=== PATIENT | male | born 1995 ===

== ENCOUNTER → 2020-05-27 10:23 | Outpatient (BNVA) | payer MEDICARE, MEDICAID, SELFPAY | PROVIDERS: PCP Internal Medicine; Referring Provider Internal Medicine; Visit Provider Dietitian, Registered | DX: Z76.89 Persons encountering health services in other specified circumstances (principal) ==

== ENCOUNTER → 2020-08-27 11:16 | Outpatient (BNVA) | payer MEDICARE, MEDICAID, SELFPAY | PROVIDERS: PCP Internal Medicine; Visit Provider Dietitian, Registered ==

== ENCOUNTER → 2020-10-21 09:33 | Outpatient (BNVA) | payer MEDICARE, MEDICAID, SELFPAY | PROVIDERS: PCP Internal Medicine; Visit Provider Nurse Practitioner Gerontology | CPT/HCPCS: 99212 ==

== ENCOUNTER 2020-10-27 07:20 | Outpatient (REF) | payer MEDICARE, MEDICAID, SELFPAY ==
[2020-10-27 08:56] LABS: Alanine Aminotransferase 24 U/L (0-40); Albumin Level 4.6 g/dL (3.5-5.0); Alkaline Phosphatase 102 U/L (39-117); Anion Gap 14 (12-20); Aspartate Amino Transferase 24 U/L (5-37); Bilirubin Total 1.2 mg/dL (0.0-1.0); Blood Urea Nitrogen 13 mg/dL (9-16); Calcium 9.3 mg/dL (8.4-10.2); Carbon Dioxide 28 mmol/L (22-29); Chloride 102 mmol/L (96-108); Cholesterol 115 mg/dL; Estimated Glomerular Filt Rate > 60; Glucose Fasting 88 mg/dL (60-99); HDL Cholesterol 26 mg/dL; LDL Cholesterol Calculated 36 mg/dl; Potassium 4.2 mmol/L (3.3-5.1); Sodium 140 mmol/L (135-145); Total Protein 7.2 g/dL (6.5-8.0); Triglycerides 265 mg/dL
[2020-10-27 09:19] LABS: Estimated Average Glucose 94 mg/dL; Hemoglobin A1c % 4.9 %
[2020-10-30 21:48] LABS: Gabapentin 4.4 mcg/mL
[2020-10-31 17:32] LABS: Oxcarbazepine 2.4 mcg/mL (8.0-35.0)
== END 2020-10-27 07:21 | disposition home or self-care (01) ==
LOC: HO.LAB 07:20
PROVIDERS: Nurse Practitioner Family; Absent Provider Nurse Practitioner Gerontology; PCP Internal Medicine; Visit Provider Internal Medicine
DX: E11.9 Type 2 diabetes mellitus without complications (principal)
CPT/HCPCS: 36415; 80053; 80061; 80171; 80339; 83036

== ENCOUNTER → 2020-12-24 10:21 | Outpatient (BNVA) | payer MEDICARE, MEDICAID, SELFPAY | PROVIDERS: PCP Internal Medicine; Visit Provider Dietitian, Registered | DX: E11.9 Type 2 diabetes mellitus without complications (principal); E66.9 Obesity, unspecified; Z68.41 Body mass index [BMI] 40.0-44.9, adult; Z71.3 Dietary counseling and surveillance | CPT/HCPCS: 97803 ==

== ENCOUNTER → 2021-03-21 11:07 | Outpatient (BNVA) | payer MEDICARE, MEDICAID, SELFPAY | PROVIDERS: PCP Internal Medicine; Visit Provider Dietitian, Registered | DX: E11.9 Type 2 diabetes mellitus without complications (principal); E66.01 Morbid (severe) obesity due to excess calories; Z68.41 Body mass index [BMI] 40.0-44.9, adult; Z71.3 Dietary counseling and surveillance | CPT/HCPCS: 97803 ==

== ENCOUNTER 2021-04-05 07:23 | Outpatient (REF) | payer MEDICARE, MEDICAID, SELFPAY ==
[2021-04-05 09:32] LABS: Alanine Aminotransferase 24 U/L (0-40); Albumin Level 4.5 g/dL (3.5-5.0); Alkaline Phosphatase 97 U/L (39-117); Anion Gap 14 (12-20); Aspartate Amino Transferase 36 U/L (5-37); Bilirubin Total 1.5 mg/dL (0.0-1.0); Blood Urea Nitrogen 14 mg/dL (9-16); Calcium 9.4 mg/dL (8.4-10.2); Carbon Dioxide 26 mmol/L (22-29); Chloride 107 mmol/L (96-108); Cholesterol 124 mg/dL; Estimated Glomerular Filt Rate > 60; Glucose Fasting 92 mg/dL (60-99); HDL Cholesterol 28 mg/dL; LDL Cholesterol Calculated 62 mg/dl; Potassium 4.3 mmol/L (3.3-5.1); Sodium 143 mmol/L (135-145); Total Protein 7.2 g/dL (6.5-8.0); Triglycerides 172 mg/dL
[2021-04-05 10:18] LABS: Estimated Average Glucose 97 mg/dL
[2021-04-08 19:17] LABS: Gabapentin 4.2 mcg/mL
[2021-04-11 20:06] LABS: Oxcarbazepine 3.4 mcg/mL (8.0-35.0)
== END 2021-04-05 07:24 | disposition home or self-care (01) ==
LOC: HO.LAB 07:23
PROVIDERS: Absent Provider Nurse Practitioner Family; PCP Internal Medicine; Visit Provider Internal Medicine
DX: R56.9 Unspecified convulsions (principal); E11.40 Type 2 diabetes mellitus with diabetic neuropathy, unspecified; E78.5 Hyperlipidemia, unspecified
CPT/HCPCS: 36415; 80053; 80061; 80171; 80339; 83036

== ENCOUNTER → 2021-04-25 09:34 | Outpatient (BNVA) | payer MEDICARE, MEDICAID, SELFPAY | PROVIDERS: PCP Internal Medicine; Visit Provider Nurse Practitioner Gerontology | CPT/HCPCS: 99212 ==

== ENCOUNTER → 2021-09-21 09:54 | Outpatient (BNVA) | payer MEDICARE, MEDICAID, SELFPAY | PROVIDERS: PCP Internal Medicine; Visit Provider Dietitian, Registered | DX: E66.01 Morbid (severe) obesity due to excess calories (principal); E11.9 Type 2 diabetes mellitus without complications; Z68.41 Body mass index [BMI] 40.0-44.9, adult | CPT/HCPCS: 97803 ==

== ENCOUNTER 2021-10-13 12:20 | Emergency (ER) | payer MEDICARE, MEDICAID, SELFPAY ==
--- NOTE | ~2021-10-13 | CT_ITS ---
EXAMINATION: CT HEAD WITHOUT CONTRAST CLINICAL INFORMATION: Head injury 10/11/2021. Seizures today. COMPARISON: CT head 04/26/2014 TECHNIQUE: Contiguous axial imaging was performed from the skull base to vertex without intravenous administration of contrast. Coronal and sagittal reformatted images are performed at the CT scanner. [This CT examination was performed using dose optimization techniques as appropriate, variously including the following: *Automated exposure control *Adjustment of mA and/or kV according to patient size (this includes techniques or standardized protocols for targeted exams where dose is matched to indication/reason for exam; i.e. extremities or head) *Use of iterative reconstruction technique] DLP: 1919 mGy-cm. FINDINGS: There is no evidence of acute intracranial hemorrhage or territorial infarction. No abnormal mass-effect or midline shift is seen. David to white matter differentiation is well preserved. No extra-axial fluid collections are identified. The ventricles are normal in size. There is no abnormal attenuation within the brain parenchyma. There is no osseous abnormality. The mastoid air cells and visualized portions of the paranasal sinuses are well-aerated. CT/CT head/brain wo con IMPRESSION: No acute intracranial pathology.
[2021-10-13 13:16] VITALS: BP 139/83; PULSE 100; RESP 18; TEMP 36.6; O2SAT 95; BMI 28.3
[2021-10-13 14:10] LABS: MANUAL DIFF FLAG NO
[2021-10-13 14:13] LABS: Basophils Percent Auto 0.2 % (0-2); Eosinophils Absolute Auto 0.1 X10*3/uL (0.0-0.4); Eosinophils Percent Auto 1.8 % (0-4); Hematocrit 46.2 % (42.0-52.0); Hemoglobin 15.2 g/dl (14.0-18.0); Imm Gran Abs Auto 0.03 X10*3/uL (0.00-0.03); Imm Gran Pct Auto 0.6 % (0.0-0.4); Lymphocytes Absolute Auto 1.1 X10*3/uL (1.2-4.9); Lymphocytes Percent Auto 21.2 % (20-40); Mean Corpuscular HGB Conc 32.9 g/dl (31.0-36.0); Mean Corpuscular Hemoglobin 27.3 pg (27.0-33.0); Mean Corpuscular Volume 83.1 fL (80.0-98.0); Mean Platelet Volume 12.1 fL (9.4-12.4); Monocytes Absolute Auto 0.4 X10*3/uL (0.1-1.2); Monocytes Percent Auto 8.7 % (2-11); Neutrophils Absolute Auto 3.4 x10*3/uL (2.0-8.3); Neutrophils Percent Auto 67.5 % (45-73); Platelet Count 127 X10*3/uL (160-400); Red Blood Count 5.56 X10*6/uL (4.60-5.80); Red Cell Distribution Width 13.8 % (11.0-16.0)
[2021-10-13 14:32] LABS: Anion Gap 11 (12-20); Blood Urea Nitrogen 17 mg/dL (9-16); Calcium 9.6 mg/dL (8.4-10.2); Carbon Dioxide 27 mmol/L (22-29); Chloride 108 mmol/L (96-108); Creatinine Clr Calc Pharmacy 133.5; Estimated Glomerular Filt Rate > 60; Glucose Random 90 mg/dL (60-115); Potassium 4.1 mmol/L (3.3-5.1); Sodium 142 mmol/L (135-145)
[2021-10-13 15:15] VITALS: BP 126/78; PULSE 82; RESP 17; TEMP 37.1; O2SAT 97
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
[2021-10-13 17:46] LABS: Magnesium 1.9 mg/dL (1.6-2.6)
[2021-10-13] MEDS: OXcarbazepine 300 MG TABLET PO (17:55)
== END 2021-10-13 18:05 | disposition home or self-care (01) ==
PROVIDERS: Physician Assistant; Emergency Provider Emergency Medicine; PCP Internal Medicine
DX: R56.9 Unspecified convulsions (principal); S00.12XA Contusion of left eyelid and periocular area, initial encounter; Y04.2XXA Assault by strike against or bumped into by another person, initial encounter; E11.9 Type 2 diabetes mellitus without complications; E78.5 Hyperlipidemia, unspecified; Q89.9 Congenital malformation, unspecified; Z79.899 Other long term (current) drug therapy; Y93.89 Activity, other specified; Y92.049 Unspecified place in boarding-house as the place of occurrence of the external cause; Y99.9 Unspecified external cause status
CPT/HCPCS: 36415; 70450; 80048; 83735; 85025; 99284

== ENCOUNTER 2022-09-09 22:39 | Emergency (ER) | payer MEDICARE, MEDICAID, SELFPAY ==
[2022-09-09 22:54] VITALS: BP 136/88; PULSE 93; RESP 18; TEMP 36.6; O2SAT 97; BMI 35.2
--- NOTE | 2022-09-10 01:48 | ED_ITS ---
HPI - General Adult General Chief complaint: Extremity Injury, Lower Stated complaint: Toe pain Time Seen by Provider: 09/10/22 01:18 Source: other ( Caregiver) Mode of arrival: ambulatory Limitations: other ( severe autism) History of Present Illness HPI narrative: 26-year-old male with history of autism presents after accidentally kicking his foot on something. He subsequently had a toenail injury. This created Behavioral situation. However, he is brought here for evaluation. Caregivers noted a toenail injury. No additional injuries. Behavior has been relatively well controlled. There are no clear exacerbating features. Tetanus vaccination status is unknown. Related Data Home Medications Medication Instructions Recorded Confirmed aripiprazole 5 mg tablet 5 mg PO DAILY 06/14/22 06/14/22 quetiapine 100 mg tablet See Rx Instructions PO BEDTIME 06/14/22 06/14/22 quetiapine 200 mg tablet 200 mg PO .Am 06/14/22 06/14/22 quetiapine 50 mg tablet 0 mg PO 06/14/22 06/14/22 Previous Rx's Medication Instructions Recorded gabapentin 300 mg capsule 900 mg PO TID #270 caps 07/07/20 lancets 30 gauge (TRUEplus Lancets) 30 gauge miscellaneous TID for 02/12/21 diabetes mellitus 30 days #100 caps omega-3 fatty acids 1,000 mg 4,000 mg PO DAILY 30 days #120 caps 08/06/21 capsule bacitracin zinc 500 unit/gram 1 appl topical DAILY 90 days #28 09/22/21 topical ointment (Antibiotic grams (bacitracin zinc)) blood sugar diagnostic (Contour #50 ea 01/10/22 Next Test Strips) omeprazole 40 mg capsule,delayed 40 mg PO DAILY #30 caps 01/27/22 release acetaminophen 500 mg tablet 1,000 mg PO Q6H PRN for fever 30 04/16/22 days #120 tabs magnesium hydroxide 2,400 mg/10 mL 10 ml PO BEDTIME PRN constipation 04/16/22 oral suspension (Milk Of Magnesia 90 days #1,000 mL Concentrated) simvastatin 40 mg tablet 40 mg PO DAILY 90 days #90 tabs 04/16/22 trazodone 100 mg tablet 100 mg PO BEDTIME PRN insomnia 90 04/16/22 days #90 tabs loratadine 10 mg tablet 10 mg PO DAILY #30 tabs 05/11/22 carbamide peroxide 6.5 % ear drops 5 drp otic (ears) DAILY PRN ear 06/14/22 (Debrox) wax removal 4 days #15 mL lorazepam 1 mg tablet 1 mg PO DAILY PRN agitation 1 day 06/14/22 #1 tab vitamin E (dl, acetate) 180 mg 180 mg PO DAILY #30 caps 07/20/22 (400 unit) capsule oxcarbazepine 300 mg tablet 300 mg PO BID 90 days #180 tabs 08/17/22 Allergies Allergy/AdvReac Type Severity Reaction Status Date / Time No Known Allergies Allergy Verified 06/14/22 11:29 Review of Systems Review of Systems: Yes Unobtainable due to mental status [facility] Past Medical History Attestation statement: The following information was validated with the patient. 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 Paternal Grandfather Diabetes Sister Alive and well Social History Social History Housing: Other Housing Other:: [facility] [place] Alcohol intake: never Patient Tobacco Use Status: Never used Tobacco e-Cigarette/Vaping Use: Never Used Second Hand Smoke Exposure: No Advance Directives: No Advance Directives Information Provided: No service: No Current occupational status: disabled Cognitive needs: No Hearing needs: No Vision needs: No Physical Exam ED Vital Signs: Vital Signs - 24 hr 09/09/22 22:54 Temperature 97.8 F Pulse Rate 93 Respiratory Rate 18 Blood Pressure 136/88 Pulse Oximetry 97 Oxygen Delivery Method Room Air BMI result Body Mass Index 35.2 GEN: Well developed, no acute distress, alert, oriented HEENT: Normocephalic, atraumatic, normal external ears, nose appears normal Eyes: Normal to appearance Neck: Supple, no lymphadenopathy Respiratory: Talks in complete sentences, no respiratory distress Extremities: No clubbing cyanosis or edema , right great toenail partial avulsion, no active bleeding, no deformity Neurologic: No focal neurologic deficits, cranial nerves 2-12 intact, gait normal Skin: No rash Course Course Course Narrative: 26-year-old male with severe autism presents with toenail injury. There is no deformity. Patient's toe was cleaned up with hydrogen peroxide, bacitracin and a clean bandage was applied. Wound instructions were discussed with caregivers. Tetanus vaccination was updated Medical Decision Making Medical Decision Making MDM Narrative: 26-year-old male with severe autism presents with toenail injury. There is no deformity. Patient's toe was cleaned up with hydrogen peroxide, bacitracin and a clean bandage was applied. Wound instructions were discussed with caregivers. Tetanus vaccination was updated Differential Diagnosis Differential Diagnoses: The differential diagnosis associated with the presentation includes ( nail avulsion, fracture, subluxation, dislocation) Independent Historian Clinical information obtained from an independent historian. History obtained from or confirmed by: Other ( caregiver) Tests considered The following testing was considered but not selected: x-ray of the toe Chronic Conditions Patient?s care impacted by: Other ( autism) Discharge Plan Discharge Clinical Impression: Injury of great toenail Patient Disposition: Home, Self-Care Instructions: Nail Avulsion (ED) Additional Instructions: keep the nail clean and dry, wash gently with soap and water twice daily apply bacitracin. Watch for signs of infection including redness, swelling, pain, pus. The toenail may fall out on its own. If there are continued symptoms or problems, you should follow-up with a vocational psychologist. Prescriptions: No Action gabapentin 300 mg capsule 900 mg PO TID Qty: 270 5RF lancets [TRUEplus Lancets] 30 gauge misc 30 gauge miscellaneous TID 30 Days Qty: 100 11RF omega-3 fatty acids 1,000 mg capsule 4,000 mg PO DAILY 30 Days Qty: 120 11RF bacitracin zinc [Antibiotic (bacitracin zinc)] 500 unit/gram ointment 1 appl topical DAILY 90 Days Qty: 28 0RF (DME) Contour Next Test Strips Strip See Rx Instructions .Route Qty: 50 11RF Rx Instructions: Use 1 test strip three times a day omeprazole 40 mg capsule,delayed release(DR/EC) 40 mg PO DAILY Qty: 30 11RF acetaminophen 500 mg tablet 1,000 mg PO Q6H PRN (Reason: for fever) 30 Days Qty: 120 11RF trazodone 100 mg tablet 100 mg PO BEDTIME PRN (Reason: insomnia) 90 Days Qty: 90 1RF magnesium hydroxide [Milk Of Magnesia Concentrated] 2,400 mg/10 mL suspension 10 ml PO BEDTIME PRN (Reason: constipation) 90 Days Qty: 1000 1RF simvastatin 40 mg tablet 40 mg PO DAILY 90 Days Qty: 90 1RF loratadine 10 mg tablet 10 mg PO DAILY Qty: 30 7RF vitamin E (dl, acetate) 180 mg (400 unit) capsule 180 mg PO DAILY Qty: 30 6RF oxcarbazepine 300 mg tablet 300 mg PO BID 90 Days Qty: 180 1RF quetiapine 100 mg tablet See Rx Instructions PO BEDTIME Rx Instructions: 100mg at bedtime aripiprazole 5 mg tablet 5 mg PO DAILY quetiapine 200 mg tablet 200 mg PO .Am quetiapine 50 mg tablet 0 mg PO lorazepam 1 mg tablet 1 mg PO DAILY PRN (Reason: agitation) 1 Days Qty: 1 0RF Rx Instructions: Take 1 tab 45 minutes before bloodwork Debrox 6.5 % drops 5 drp otic (ears) DAILY PRN (Reason: ear wax removal) 4 Days Qty: 15 0RF Referrals: Mary Lou Rodney MD [Primary Care Provider] - 3 days
[2022-09-10] MEDS: Diphth,Pertus(ACell),Tet Adult 0.5 ML SYRINGE IM (02:08)
== END 2022-09-10 02:12 | disposition home or self-care (01) ==
PROVIDERS: Emergency Provider Emergency Medicine; PCP Internal Medicine
DX: S91.201A Unspecified open wound of right great toe with damage to nail, initial encounter (principal); S90.413A Abrasion, unspecified great toe, initial encounter; Y29.XXXA Contact with blunt object, undetermined intent, initial encounter; Y93.9 Activity, unspecified; Y92.009 Unspecified place in unspecified non-institutional (private) residence as the place of occurrence of the external cause; Y99.9 Unspecified external cause status; Z79.899 Other long term (current) drug therapy; Z23 Encounter for immunization
CPT/HCPCS: 90471; 90715; 99282; 99284

== ENCOUNTER → 2022-09-29 10:39 | Outpatient (BNVA) | payer MEDICARE, MEDICAID, SELFPAY | PROVIDERS: PCP Internal Medicine; Visit Provider Dietitian, Registered | DX: E11.9 Type 2 diabetes mellitus without complications (principal); E66.01 Morbid (severe) obesity due to excess calories; Z68.41 Body mass index [BMI] 40.0-44.9, adult | CPT/HCPCS: 97803 ==

== ENCOUNTER 2022-10-05 10:02 | Outpatient (REF) | payer MEDICARE, MEDICAID, SELFPAY ==
[2022-10-05 10:16] LABS: MANUAL DIFF FLAG NO
[2022-10-05 10:29] LABS: Basophils Percent Auto 0.1 % (0-2); Eosinophils Percent Auto 0.3 % (0-4); Hematocrit 44.8 % (42.0-52.0); Imm Gran Abs Auto 0.04 X10*3/uL (0.00-0.03); Imm Gran Pct Auto 0.5 % (0.0-0.4); Lymphocytes Absolute Auto 1.1 X10*3/uL (1.2-4.9); Mean Corpuscular HGB Conc 33.5 g/dl (31.0-36.0); Mean Corpuscular Hemoglobin 27.3 pg (27.0-33.0); Mean Corpuscular Volume 81.5 fL (80.0-98.0); Mean Platelet Volume 12.1 fL (9.4-12.4); Monocytes Absolute Auto 0.5 X10*3/uL (0.1-1.2); Monocytes Percent Auto 7.3 % (2-11); Neutrophils Absolute Auto 5.7 x10*3/uL (2.0-8.3); Neutrophils Percent Auto 76.8 % (45-73); Platelet Count 116 X10*3/uL (160-400); Red Cell Distribution Width 13.8 % (11.0-16.0); White Blood Count 7.4 X10*3/uL (4.8-10.8)
[2022-10-05 10:48] LABS: Alanine Aminotransferase 27 U/L (0-40); Albumin Level 4.2 g/dL (3.5-5.0); Alkaline Phosphatase 99 U/L (39-117); Anion Gap 11 (12-20); Aspartate Amino Transferase 24 U/L (5-37); Bilirubin Total 1.5 mg/dL (0.0-1.0); Blood Urea Nitrogen 11 mg/dL (9-16); Carbon Dioxide 29 mmol/L (22-29); Chloride 104 mmol/L (96-108); Cholesterol 133 mg/dL; Estimated Glomerular Filt Rate > 60; Glucose Random 103 mg/dL (60-115); HDL Cholesterol 25 mg/dL; LDL Cholesterol Calculated 52 mg/dl; Potassium 3.9 mmol/L (3.3-5.1); Sodium 140 mmol/L (135-145); Total Protein 6.5 g/dL (6.5-8.0); Triglycerides 282 mg/dL
== END 2022-10-05 10:03 | disposition home or self-care (01) ==
LOC: HO.LAB 10:02
PROVIDERS: PCP Internal Medicine; Visit Provider Internal Medicine
DX: Z01.818 Encounter for other preprocedural examination (principal); E78.5 Hyperlipidemia, unspecified
CPT/HCPCS: 36415; 80053; 80061; 85025

== ENCOUNTER → 2022-10-06 11:20 | Outpatient (REF) | payer MEDICARE, MEDICAID, SELFPAY | LOC: HO.CARD 11:20 | PROVIDERS: PCP Internal Medicine; Visit Provider Internal Medicine | DX: Z13.89 Encounter for screening for other disorder (principal) ==

== ENCOUNTER 2023-03-15 09:28 | Outpatient (AMB) | payer MEDICARE, MEDICAID, SELFPAY ==
[2023-03-15 09:30] VITALS: BP 136/82; PULSE 78; O2SAT 97; BMI 41.4
--- NOTE | 2023-03-15 09:30 | A.OFFVIS_ITS ---
Intake Vital Signs 03/15/23 09:30 Height 5 ft 8 in Weight 272 lb BMI 41.4 BP 136/82 Blood Pressure Location Lt brachial Position Sitting Pulse 78 Pulse Source Pulse Oximeter Temp Source Skin Pulse Oximetry (%) 97 Oxygen Delivery Method Room Air Intake Visit Reasons: AWV Intake Note: Patient is here for an Annual Wellness Visit. Allergies No Known Allergies Allergy (Verified 03/15/23 09:44) Medication List - Last Reconciled 03/15/23 by TONI Belcher acetaminophen 1,000 mg (2 x 500 mg) PO Q6H PRN 30 days aripiprazole 5 mg PO DAILY bacitracin zinc (Antibiotic (bacitracin zinc)) 1 appl topical DAILY 90 days blood sugar diagnostic (Contour Next Test Strips) Use 1 test strip three times a day carbamide peroxide 6.5% (Debrox) 5 drps otic (ears) DAILY PRN 4 days gabapentin 900 mg (3 x 300 mg) PO TID guaifenesin 400 mg PO Q4H PRN lancets (TRUEplus Lancets) 30 gauge miscellaneous TID 30 days loratadine 10 mg PO DAILY lorazepam 1 mg PO DAILY PRN 1 day magnesium hydroxide (Milk Of Magnesia Concentrated) 10 mL PO BEDTIME PRN 90 days omega-3 fatty acids 4,000 mg (4 x 1,000 mg) PO DAILY 30 days omeprazole 40 mg PO DAILY oxcarbazepine 300 mg PO BID 90 days quetiapine 100mg at bedtime quetiapine 200 mg PO .Am quetiapine 0 mg PO simvastatin 40 mg PO DAILY 90 days trazodone 100 mg PO BEDTIME PRN 90 days vitamin E (dl, acetate) 180 mg PO DAILY HPI AWV HPI Details Patient is a 27-year-old male presents today for subsequent wellness visit. Patient of Dr. Tellez. Patient lives in a jail and today he is accompanied by jail workers. Medical history significant for GERD, constipation, developmental anomaly, morbid obesity, diabetes type 2-diet controlled-patient would not let to check A1c, seizures-followed by Neurology Dr. Noguera, hyperlipidemia, autism. Patient is up-to-date with immunizations. Will refer for diabetic eye exam. [place] of care was reviewed with jail workers and they were provided with a screening schedule. Also provided jail workers with healthcare proxy and MOLST forms for patient's mother. [facility] Medical History (Updated 03/15/23 @ 13:22 by TONI Belcher) Autism Constipation by delayed colonic transit Developmental anomaly GERD (gastroesophageal reflux disease) Medicare annual wellness visit, initial Mixed hyperlipidemia Physical exam Seizures Surgical History No pertinent past surgical history Family History Father Hypertension Mother No problems noted. Paternal Grandfather Diabetes Sister Alive and well Social History Housing: Other Housing Other:: [employer] [place] Alcohol intake: never Patient Tobacco Use Status: Never used Tobacco e-Cigarette/Vaping Use: Never Used Second Hand Smoke Exposure: No service: No Current occupational status: disabled Cognitive needs: No Hearing needs: No Vision needs: No Questionnaire Medicare Wellness Checkup What [age] 65-69 What gender do you identify with?: male During the past 4 weeks, has your physical & emotional health limited your social activities with family, friends, neighbors, or groups?: not at all During the past 4 weeks, was someone available to help you if you needed & wanted help?: yes, as much as I wanted Can you get to places out of walking distance without help? (For eg., can you travel alone on buses, taxis or drive your car?): No Can you go shopping for groceries or clothes without someone's help?: No Can you prepare your own meals?: No Can you do your housework without help?: No Because of any health problems, do you need the help of another person with your personal care needs such as eating, bathing, dressing or getting around the house?: Yes (autism) Can you handle your own money without help?: No Are you having difficulties driving your car?: not applicable, I don't use a car Do you always fasten your seat belt when you are in a car?: yes, usually Have you fallen 2 or more times in the past year?: No Are you a smoker?: no During the past 4 weeks, how many drinks of wine, beer, or other alcoholic beverages did you have?: no alcohol at all Do you exercise for about 20 minutes 3 or more times a week?: no, I usually do not exercise this much Have you been given information to help with the following?: no: Hazards in your house that might hurt you? and no: Keeping track of your medications? How often do you have trouble taking medicines the way you have been told to take them?: I always take medicine as prescribed What is your race?: or origin or descent Mini Mental State Exam (MMSE) Orientation What is the (year) (season) (date) (day) (month)?: month (pt nonverbal ) Score Score: 1 Activity of Daily Living Bathing - sponge bath, tub bath or shower: receives help in bathing more than one body part (or not bathed) Dressing - getting clothes from closets & drawers, including inner/outer garments & fasteners.: gets clothes & gets dressed without help, except for help tying shoes Toileting - going to the 'toilet room' for urine/bowel elimination & cleaning self/arranging clothes: goes to toilet room, cleans self, arranges clothes without help Transfer: moves in & out of bed and chair without help (may use support object) Continence: controls urination/bowel movements completely by self Feeding: feeds self without help Total Score: 1 Information obtained from: informant Using telephone: dependent Traveling: dependent Shopping: dependent Preparing meals: dependent Housework: dependent Taking medicine: dependent Managing money: dependent PHQ-9 Over the last 2 weeks, how often have you been bothered by any of the following problems? 1. Little interest or pleasure in doing things: not at all 2. Feeling down, depressed, or hopeless: not at all 3. Trouble falling or staying asleep, or sleeping too much: not at all 4. Feeling tired or having little energy: not at all 5. Poor appetite or overeating: not at all 6. Feeling bad about yourself - or that you are a failure or have let yourself or your family down: not at all 7. Trouble concentrating on things, such as reading the newspaper or watching television: not at all 8. Moving or speaking so slowly that other people could have noticed. Or the opposite - being so fidgety or restless that you have been moving around a lot more than usual: not at all 9. Thoughts that you would be better off or of hurting yourself in some way: not at all Total score: 0 Depression Screening Interpretation: Negative 18488 - PHQ-9 Billing: Yes Source: Developed by Drs. Ravinder Navarro, Gunjan Goodman, John Becerra and colleagues, with an educational graham from [email or web address]. STEPHANIE-7 AMB Questionnaire STEPHANIE-7 Date STEPHANIE - 7 assessed: 09/28/22 Feeling nervous, anxious, or on edge: 0 = Not at all Not being able to stop or control worryin = Not at all Worrying too much about different things: 0 = Not at all Trouble relaxin = Not at all Being so restless that it is hard to sit still: 0 = Not at all Becoming easily annoyed or irritable: 0 = Not at all Feeling afraid as if something awful might happen: 0 = Not at all Total STEPHANIE-7 score (0-4 normal; 5-9 mild; 10-14 moderate; 15-21 severe): 0 Source: Developed by Drs. Ravinder Navarro, Gunjan Goodman, John Becerra and colleagues, with an educational graham from [employer]. STEPHANIE-7 Assessment Billing STEPHANIE-7 Assessment Tool: STEPHANIE-7 Assessment 09454 AUDIT C Alcohol Use Questionnaire (AUDIT-C) 1. How often do you have a drink containing alcohol?: Never Total Score: 0 Score Reviewed/Action Taken: No Thrive Questionnaire Date Thrive assessed: 09/28/22 Physical Exam Vital Signs: Last Vital Signs Pulse 78 03/15/23 09:30 BP 136/82 03/15/23 09:30 Pulse Ox 97 03/15/23 09:30 Oxygen Delivery Method Room Air 03/15/23 09:30 BMI result Body Mass Index 41.4 Const General: no acute distress Orientation/consciousness: Other orientation findings (Nonverbal) HEENT Other: Whisper test: Unable to assess - nonverbal Neuro Other: Balance: Normal Get up and walk: unable to Romberg: Unable to assess-would not follow commands Tandem gait: Unable to assess-would not follow commands Assessment & Plan Assessment & Plan (1) Morbid obesity due to excess calories: Code(s): E66.01 - Morbid (severe) obesity due to excess calories Plan: Healthy food choices and exercise as tolerated (2) Medicare annual wellness visit, subsequent: Code(s): Z00.00 - Encounter for general adult medical examination without abnormal findings (3) Autism: Code(s): F84.0 - Autistic disorder Plan: Continue to follow-up with psychiatry (4) Type 2 diabetes mellitus in remission: Comment: Reinforce healthy plate method, reducing portion of starches Used wt : 133 kg Recommended kcal: 2729 -500= 2229 rec prot intake as per 1.0 g/kg bw: 133g/d rec fluid as per 25 ml/kg bw: 3325ml/d Code(s): E11.9 - Type 2 diabetes mellitus without complications Plan: Diet controlled A1c 5.0 09/2022, patient would not let to check his A1c today Ophthalmology referral for diabetic eye exam Low-carbohydrate diet (5) Mixed hyperlipidemia: Code(s): E78.2 - Mixed hyperlipidemia Plan: Continue current treatment Low-cholesterol diet (6) Seizures: Code(s): R56.9 - Unspecified convulsions Plan: Continue to follow-up with neurology Dr. 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, unspecified Plan: Continue to follow-up with psychiatry (8) GERD (gastroesophageal reflux disease): Code(s): K21.9 - Gastro-esophageal reflux disease without esophagitis Qualifiers: Esophagitis presence: esophagitis presence not specified Qualified Code(s): K21.9 - Gastro-esophageal reflux disease without esophagitis Plan: Continue current treatment Avoid GERD trigger foods Do not lay down 2-3 hours after evening meal Orders: Referrals Ophthalmology Referral E11.9 - Type 2 diabetes mellitus without complications Medications: Refilled acetaminophen 1,000 mg (2 x 500 mg) PO Q6H 30 days PRN 120 tabs 11RF for fever magnesium hydroxide (Milk Of Magnesia Concentrated) 10 mL PO BEDTIME 90 days PRN 1,000 mL 1RF constipation bacitracin zinc (Antibiotic (bacitracin zinc)) 1 appl topical DAILY 90 days 28 grams 0RF Quality Reporting (2019) Fall Risk Screening ([facility]) Last assessed Fall Risk: 03/15/23 Fall risk assessment: No Falls in past year Depression/Bipolar (159/160/161/177) PHQ-9: Total score: 0 Coding Level of Care Code Medicare Subsequent (G0439) Diagnoses Morbid obesity due to excess calories E66.01 Medicare annual wellness visit, subsequent Z00.00 Autism F84.0 Type 2 diabetes mellitus in remission E11.9 Mixed hyperlipidemia E78.2 Seizures R56.9 Developmental anomaly Q89.9 GERD (gastroesophageal reflux disease) K21.9 Esophagitis presence: esophagitis presence not specified CPT Codes Advance Care Planning - Time spent: 1-15 minutes, not on file ([id number]) Additional Codes STEPHANIE-7 Assessment Billing - STEPHANIE-7 Assessment Tool: STEPHANIE-7 Assessment 31821 ([id number]) Advance Care Planning Date of discussion: 03/15/23 Who was present: Forms were given to jail workers for patient's mother Forms completed: None Time spent: 1-15 minutes, not on file Actual minutes spent: 2 Did not discuss due to Cultural/Spiritual beliefs: No
== END 2023-03-15 10:12 | disposition home or self-care (01) ==
PROVIDERS: PCP Internal Medicine; Visit Provider Nurse Practitioner Family
DX: Z00.00 Encounter for general adult medical examination without abnormal findings (principal); E66.01 Morbid (severe) obesity due to excess calories; Z68.41 Body mass index [BMI] 40.0-44.9, adult; F84.0 Autistic disorder; E11.9 Type 2 diabetes mellitus without complications; R56.9 Unspecified convulsions; K21.9 Gastro-esophageal reflux disease without esophagitis; E78.2 Mixed hyperlipidemia; Q89.9 Congenital malformation, unspecified
CPT/HCPCS: 1124F; G0439

== ENCOUNTER 2023-06-13 11:05 | Outpatient (AMB) | payer MEDICARE, MEDICAID, SELFPAY ==
--- NOTE | 2023-06-13 11:07 | A.OFFVIS_ITS ---
Intake VS Expanded 06/13/23 11:08 Height 5 ft 8 in Weight 270 lb 1.06 oz BMI 41.1 Intake Visit Reasons: DM Allergies No Known Allergies Allergy (Verified 03/15/23 09:44) HPI Nutrition Presentation Details Pt presents for MNT for OBesity and T2DM Pt presents with staff from [facility] Most Recent Diabetes Results: Cholesterol 133 mg/dL 10/05/22 HDL Cholesterol 25 mg/dL 10/05/22 Triglycerides 282 mg/dL 10/05/22 Creatinine 1.06 mg/dL (0.5-1.4) 10/05/22 Blood Urea Nitrogen 11 mg/dL (9-16) 10/05/22 Sodium 140 mmol/L (135-145) 10/05/22 Potassium 3.9 mmol/L (3.3-5.1) 10/05/22 Chloride 104 mmol/L (96-108) 10/05/22 Carbon Dioxide 29 mmol/L (22-29) 10/05/22 Calcium 9.0 mg/dL (8.4-10.2) 10/05/22 AST 24 U/L (5-37) 10/05/22 ALT 27 U/L (0-40) 10/05/22 Total Protein 6.5 g/dL (6.5-8.0) 10/05/22 Albumin 4.2 g/dL (3.5-5.0) 10/05/22 [facility] Medical History (Updated 06/13/23 @ 11:20 by Jessica Woodard, RD, LDN) Physical exam Autism Medicare annual wellness visit, initial Mixed hyperlipidemia Seizures Developmental anomaly Constipation by delayed colonic transit GERD (gastroesophageal reflux disease) Surgical History No pertinent past surgical history Family History Father Hypertension Mother No problems noted. Paternal Grandfather Diabetes Sister Alive and well Social History Housing: Other Housing Other:: [employer] [place] Alcohol intake: never Patient Tobacco Use Status: Never used Tobacco e-Cigarette/Vaping Use: Never Used Second Hand Smoke Exposure: No service: No Current occupational status: disabled Cognitive needs: No Hearing needs: No Vision needs: No Assessment & Plan Assessment & Plan (1) Type 2 diabetes mellitus in remission: Comment: Noted 20 lbs weight loss since 09/2022 Reinforce healthy plate method, reducing portion of sugary foods Used wt : 133 kg Recommended kcal: 2729 -500= 2229 rec prot intake as per 1.0 g/kg bw: 133g/d rec fluid as per 25 ml/kg bw: 3325ml/d Code(s): E11.9 - Type 2 diabetes mellitus without complications (2) Morbid (severe) obesity due to excess calories: Comment: Pt to resume working on reducing portion sizes Wt hx BMI 41.1 (05/2023) BMI 44.6 /293 lbs(09/29/2022), BMI 41.3/272 lbs(08/2021) , BMI 42.4 (reported weight on 02/2021) BMI 41.4 (09/21/20) Per staff report Pt's weight in 2019 at 316 lbs Code(s): E66.01 - Morbid (severe) obesity due to excess calories Plan: Continue reinforcement healthy plate method, switch to lower fat milk 1% . Engage in physical activity , goal 15 minutes twice a day. Recommended kcal: 2621 -500/1000 = 1621- 2121 rec prot intake as per 0.8-1.0 g/kg bw: 99-124 g/d rec fluid as per 25 ml/kg bw: 3100ml/d Patient Instructions: Recommend including fish at least twice a week Continue working on reducing on sugars (choose low sugar cereals, offer oatmeal twice a week made with diet sugar) , provide oikos or chobani yogurt as snack (lower sugar yogurts) and a fruit Coding Level of Care Code Nutr Indiv Subseq (44955) Diagnoses Type 2 diabetes mellitus in remission E11.9 Morbid (severe) obesity due to excess calories E66.01 Time Spent (min) 30
[2023-06-13 11:08] VITALS: BMI 41.1
== END 2023-06-13 11:25 | disposition home or self-care (01) ==
LOC: HO.ENCR 11:05
PROVIDERS: PCP Internal Medicine; Visit Provider Dietitian, Registered
DX: E11.9 Type 2 diabetes mellitus without complications (principal); E66.01 Morbid (severe) obesity due to excess calories

== ENCOUNTER → 2023-06-13 11:05 | Outpatient (BNVA) | payer MEDICARE, MEDICAID, SELFPAY | PROVIDERS: PCP Internal Medicine; Visit Provider Dietitian, Registered | DX: E11.9 Type 2 diabetes mellitus without complications (principal); E66.01 Morbid (severe) obesity due to excess calories; Z68.41 Body mass index [BMI] 40.0-44.9, adult | CPT/HCPCS: 97803 ==

== ENCOUNTER 2023-06-18 12:39 | Outpatient (REF) | payer MEDICARE, MEDICAID, SELFPAY ==
[2023-06-18 16:40] LABS: Influenza A PCR NEGATIVE (Negative); Influenza B PCR NEGATIVE (Negative); Resp Syncy Virus RNA Qual PCR NEGATIVE (Negative); SARS COV2 PCR INHOUSE NEGATIVE (Negative)
== END 2023-06-18 12:40 | disposition home or self-care (01) ==
LOC: HO.CHCLNP 12:39
PROVIDERS: Visit Provider Family Medicine
DX: J32.9 Chronic sinusitis, unspecified (principal); Z20.822 Contact with and (suspected) exposure to COVID-19
CPT/HCPCS: 0241U

== ENCOUNTER 2023-07-02 13:12 | Outpatient (RCR) | payer MEDICARE, MEDICAID, SELFPAY ==
--- NOTE | 2023-07-05 14:07 | MHC.SP.ADU ---
Referring provider: Hyun Hearn MD Reason for Referral: Developmental nonverbal disorder Type of Treatment: 87933 Evaluation Speech Sound Production WITH Language Date of Plan of Treatment: 07/02/23 Onset of Symptoms/Illness: 07/02/23 Date Treatment Started: 07/02/23 Medical Diagnosis: autism, mental retardation, seizure disorder Primary Speech Language Diagnosis: F80.1 Expressive language disorder History Aron is a 27 year old bilingual Ethiopian-Slovak male referred for an evaluation by Hyun Hearn MD from [facility]. Aron lives at [facility] where reportedly Slovak is the primary language. Aron was accompanied to this evaluation on 07/02/23 by two staff members of the jail, Lauren Stack and Tal Crews. Per patient intake form, Aron has a medical history including anxiety/depression, ASD, diabetes, emotional/psychological issues, hypertension, seizure disorder, and voice issues/changes. Lauren and Tal report that Aron is nonverbal and communicates mainly with body language (i.e. gestures, pointing) and bringing items to staff (i.e. bringing the van keys to request a ride). Reportedly, Aron has a consistent gesture for ?yes? (touching hand to head then moving hand away quickly), however he does not have a consistent ?no? other than pushing away items. Reportedly, to determine Aron? needs, the staff asks ?do you want ___?? several times until they see his gesture for ?yes.? Lauren and Tal report minimal concern with receptive language and a primary concern with expressive communication. Reportedly, when asked to follow commands, Aron will understand and follow. The jail?s goal is to improve overall expressive communication to improve communication between Aron and the jail staff. Specifically, they expressed a goal to communicate when he is not feeling well and tell others what is wrong. residential staff express negative behaviors from Aron associated with frustration not being able to get his message across. No history of speech therapy or AAC use was reported. Medical History: anxiety/depression, ASD, diabetes, emotional/psychological issues, hypertension, seizure disorder, and voice issues/changes Social History: Employment Status: Unemployed Highest level of education obtained: Completed Grade School Current Living Situation: [facility] Past Speech Language Therapy: No reported history of speech therapy Other Therapies Seen in Current Calendar Year: Unknown Reported Speech, Language, Cognition difficulties: Understanding Attention Reading Memory Cognition Speaking Problem Solving Writing Voice Swallowing Assessment Tests of Speech & Lang Adults: Clinical Impression: Impaired EXPRESSIVE AND RECEPTIVE LANGUAGE Throughout today?s evaluation, Aron communicated through body language and non-linguistic vocalizations. He made choices by pointing or grabbing item. He expressed protest by both body language and vocalizations including pushing items away, producing frustrated non-linguistic sounds, and slamming his fist on the table. This clinician began administration of the Ethiopian-Bilingual Edition of the Receptive One-Word Picture Vocabulary Test (ROWPVT) to evaluate Yonny?s receptive vocabulary. Aron did not engage with test booklet or prompts; consistently pushing testing booklet away. Receptive vocabulary and language was informally evaluated in both Ethiopian and Slovak. He followed some simple 1-step directions such as ?give me/dame.? When asked to give the clinician particular items, he did not give the requested item in any trials (0/8). Augmentative and Alternative Communication (AAC) The use of both lite tech and high tech AAC were trialed with Aron. Aron was provided [employer] tech drawings and flash cards to assist in making choices and answering yes/no questions. When given two options, he was observed to consistently point to the item on the right. Aron engaged minimally with a high tech AAC screening using the [employer] Quick Assess application. When prompted to, ?Touch the apple,? Aron often tapped quickly using three fingers to point to the target icon. These behaviors impacted his ability to successfully select target icons. He was more successfully selecting larger icons with space between various icons. Impressions and Recommendations Summary: Based on today?s evaluation, Aron presents with a mixed expressive communication difficulty. It is recommended that Aron participate in a further comprehensive AAC evaluation with a Speech-Language Pathologist specializing in AAC/Assistive Technology. Recommend further evaluation of receptive language. Recommendation for Speech Therapy: Outpatient Speech Therapy Frequency/Duration: 1x/week x 12 weeks Time to Reassess: 3 months Mcfp Goals: LTG 1 Aron will complete additional standardized testing to obtain standardized scores and update goals as appropriate. LTG 2 Aron? communication partners will participate in AAC education and training (types of AAC, how to support AAC users, modeling, prompting, etc.) LTG 3 rAon and his communication partners will participate in design and creation of AAC tools individualized for Aron LTG 4 Aron will use a total communication approach (i.e. verbal, sign, gesture) to express his wants and needs Short Term Goals: STG 1.1 Aron will complete the Ethiopian-Bilingual Edition of the Receptive One-Word Picture Vocabulary Test (ROWPVT) with 100% completion to better inform goals. STG 3.1 Aron and his communication partners will participate in creation of individualized lite tech AAC system with 100% completion Patient Education: Completed: Yes Patient/Caregiver Education: Described Results of Evaluation Family/Caregivers expressed understanding of results Family/Caregivers expressed agreement with goals and treatment plan It was a pleasure to meet and work with Aron. If you have any questions about the contents of this report, do not hesitate to contact me at [phone] or [email or web address] Display Coordinator Clinican/Clinical Fellow: No Supervisory Statement: N/A Speech Language Pathologist: Rica Donohue M.A., CCC-GROCERY BUYER
== END 2023-08-01 10:37 | disposition still patient (30) ==
LOC: HO.SH 13:12
PROVIDERS: Visit Provider Family Medicine
DX: F81.89 Other developmental disorders of scholastic skills (principal); F80.1 Expressive language disorder
CPT/HCPCS: 92523

== ENCOUNTER 2023-10-04 10:00 | Outpatient (RCR) | payer MEDICARE, MEDICAID, SELFPAY ==
--- NOTE | 2023-10-04 12:19 | MHC.SL.SOA ---
Referring Provider: Hyun Hearn MD Reason for Referral: Developmental nonverbal disorder Date of Plan of Treatment:07/02/23 Onset of Symptoms/Illness:07/02/23 Date Treatment Started:07/02/23 Medical Diagnosis: autism, mental retardation, seizure disorder Primary Speech Language Diagnosis:F80.1 Expressive language disorder Reason for Visit:Non-billable Event Subjective: Aron is a 27 year old bilingual Scottish-Kittitian male who came in to [facility] [place] [place] for an evaluation on 07/02/2023. Aron lives at [facility] where reportedly Kittitian is the primary language. Per patient intake form, Aron has a medical history including anxiety/depression, ASD, diabetes, emotional/psychological issues, hypertension, seizure disorder, and voice issues/changes. Lauren and Tal report that Aron is nonverbal and communicates mainly with body language (i.e. gestures, pointing) and bringing items to staff (i.e. bringing the van keys to request a ride). Reportedly, Aron has a consistent gesture for ?yes? (touching hand to head then moving hand away quickly), however he does not have a consistent ?no? other than pushing away items. Reportedly, to determine Aron? needs, the staff asks ?do you want ___?? several times until they see his gesture for ?yes.? Lauren and Tal report minimal concern with receptive language and a primary concern with expressive communication. Reportedly, when asked to follow commands, Aron will understand and follow. The skilled nursing?s goal is to improve overall expressive communication to improve communication between Aron and the skilled nursing staff. Specifically, they expressed a goal to communicate when he is not feeling well and tell others what is wrong. [facility] staff express negative behaviors from Aron associated with frustration not being able to get his message across. No history of speech therapy or AAC use was reported. Objective: Met briefly w/ skilled nursing staff member Nancy to finalize d/c plan and allow opportunity for any questions regarding lite tech AAC. D/c plan below was also sent via email to skilled nursing staff to Nancy Rubio, Leslie Arnold, and Jarret Byrd. Names of private practice bench assembly inspector who accept Medicare/Medicaid were also provided. Discharge Plan-- Obtaining a speech generating device/high tech AAC device: Our proposed plan at this time is to pursue a speech generating device through [employer] for Aron. Unfortunately, I started the process through [employer], however they request 30 days of intensive data taking and if we don't show the need for Aron to require the device at that time then insurance will not pay. Speech therapy: My recommendation is for Aron to receive speech therapy within the skilled nursing setting. It is a setting that he is comfortable in and a setting that it is much easier to work on communication FUNCTIONALLY. Once a device is obtained: Once Aron *hopefully* gets an AAC device, and if you are not able to locate an MOTOR COACH DRIVER to come to the skilled nursing by then, please reach out to us to see if there are opportunities for our clinic to support Aron and the staff with using the device. Assessment: EXPRESSIVE AND RECEPTIVE LANGUAGE Throughout today?s evaluation, Aron communicated through body language and non-linguistic vocalizations. He made choices by pointing or grabbing item. He expressed protest by both body language and vocalizations including pushing items away, producing frustrated non-linguistic sounds, and slamming his fist on the table. This clinician began administration of the Scottish-Bilingual Edition of the Receptive One-Word Picture Vocabulary Test (ROWPVT) to evaluate Yonny?s receptive vocabulary. Aron did not engage with test booklet or prompts; consistently pushing testing booklet away. Receptive vocabulary and language was informally evaluated in both Scottish and Kittitian. He followed some simple 1-step directions such as ?give me/dame.? When asked to give the clinician particular items, he did not give the requested item in any trials (0/8). Augmentative and Alternative Communication (AAC) The use of both lite tech and high tech AAC were trialed with Aron. Aron was provided lite tech drawings and flash cards to assist in making choices and answering yes/no questions. When given two options, he was observed to consistently point to the item on the right. Aron engaged minimally with a high tech AAC screening using the [employer] Quick Assess application. When prompted to, ?Touch the apple,? Aron often tapped quickly using three fingers to point to the target icon. These behaviors impacted his ability to successfully select target icons. He was more successfully selecting larger icons with space between various icons. Plan: Aron is to be discharged from outpatient speech therapy at this time. In-home speech therapy services are recommended to provide functional communication support for Aron and skilled nursing staff. Seen by: Graduate/Clinical Fellow: No Supervisory Statement: f_Reg Query Last Value , MHC.AU.SIGNAT Speech Language Pathologist: Rica Donohue M.A., CCC-MOTOR COACH DRIVER
== END 2023-10-04 13:22 | disposition home or self-care (01) ==
LOC: HO.SH 10:00
PROVIDERS: Visit Provider Family Medicine
DX: F81.89 Other developmental disorders of scholastic skills (principal)
CPT/HCPCS: 92507

== ENCOUNTER 2023-11-30 07:21 | Outpatient (REF) | payer MEDICARE, MEDICAID, SELFPAY | END 2023-11-30 07:22 | disposition home or self-care (01) | LOC: HO.LAB 07:21 | PROVIDERS: PCP Family Medicine; Visit Provider Family Medicine | DX: Z13.89 Encounter for screening for other disorder (principal) ==

== ENCOUNTER 2023-12-06 06:34 | Outpatient (REF) | payer MEDICARE, MEDICAID, SELFPAY ==
[2023-12-06 06:48] LABS: MANUAL DIFF FLAG NO
[2023-12-06 08:07] LABS: Basophils Percent Auto 0.4 % (0-2); Eosinophils Absolute Auto 0.1 X10*3/uL (0.0-0.4); Eosinophils Percent Auto 1.1 % (0-4); Hematocrit 47.2 % (42.0-52.0); Hemoglobin 15.8 g/dl (14.0-18.0); Imm Gran Abs Auto 0.01 X10*3/uL (0.00-0.03); Imm Gran Pct Auto 0.2 % (0.0-0.4); Lymphocytes Absolute Auto 1.9 X10*3/uL (1.2-4.9); Lymphocytes Percent Auto 35.2 % (20-40); Mean Corpuscular HGB Conc 33.5 g/dl (31.0-36.0); Mean Corpuscular Hemoglobin 27.3 pg (27.0-33.0); Mean Corpuscular Volume 81.7 fL (80.0-98.0); Mean Platelet Volume 11.8 fL (9.4-12.4); Monocytes Absolute Auto 0.4 X10*3/uL (0.1-1.2); Monocytes Percent Auto 7.2 % (2-11); Neutrophils Percent Auto 55.9 % (45-73); Platelet Count 126 X10*3/uL (160-400); Red Blood Count 5.78 X10*6/uL (4.60-5.80); White Blood Count 5.4 X10*3/uL (4.8-10.8)
[2023-12-06 08:38] LABS: Alanine Aminotransferase 18 U/L (0-40); Albumin Level 4.4 g/dL (3.5-5.0); Alkaline Phosphatase 99 U/L (39-117); Anion Gap 17 (12-20); Aspartate Amino Transferase 17 U/L (5-37); Bilirubin Total 0.7 mg/dL (0.0-1.0); Blood Urea Nitrogen 21 mg/dL (9-16); Calcium 9.7 mg/dL (8.4-10.2); Carbon Dioxide 22 mmol/L (22-29); Chloride 111 mmol/L (96-108); Estimated Glomerular Filt Rate > 60; Glucose Random 96 mg/dL (60-115); Potassium 3.8 mmol/L (3.3-5.1); Sodium 146 mmol/L (135-145); Total Protein 7.3 g/dL (6.5-8.0)
[2023-12-09 20:03] LABS: Oxcarbazepine 16.7 mcg/mL (8.0-35.0)
== END 2023-12-06 06:35 | disposition home or self-care (01) ==
LOC: HO.LAB 06:34
PROVIDERS: PCP Family Medicine; Visit Provider Family Medicine
DX: Z13.89 Encounter for screening for other disorder (principal)
CPT/HCPCS: 36415; 80053; 80339; 82306; 85025

== ENCOUNTER 2024-01-01 10:56 | Outpatient (AMB) | payer MEDICARE, MEDICAID, SELFPAY ==
--- NOTE | 2024-01-01 11:05 | MHC.AMNUTRGE ---
VS Expanded 01/01/24 11:06 Height 5 ft 8 in Weight 278 lb 14.156 oz BMI 42.4 Intake Visit Reasons: DM/CONFIRMED Allergies No Known Allergies Allergy (Verified 03/15/23 09:44) Nutrition Presentation Details: Pt presents for 6 m MNT f/u for T2DM Pt is accompanied by staff from [facility] Staff expresses no concerns at this time, report Pt 's bg typically int he 100s Choosing condiments with no sugar added and Pt typically has 3 meals a day B: cereal with fruit and vegetable L/d: chicken , potato or rice and salad , water or crystal light yogurt twice a day with meds rice cakes with peanut butter drinks water sugar free juice walks daily for 20 minutes started taking vitamin D supplements BS Monitoring Most Recent Diabetes Results: Creatinine 0.93 mg/dL (0.5-1.4) 12/06/23 Blood Urea Nitrogen 21 mg/dL (9-16) H 12/06/23 Sodium 146 mmol/L (135-145) H 12/06/23 Potassium 3.8 mmol/L (3.3-5.1) 12/06/23 Chloride 111 mmol/L (96-108) H 12/06/23 Carbon Dioxide 22 mmol/L (22-29) 12/06/23 Calcium 9.7 mg/dL (8.4-10.2) 12/06/23 AST 17 U/L (5-37) 12/06/23 ALT 18 U/L (0-40) 12/06/23 Total Protein 7.3 g/dL (6.5-8.0) 12/06/23 Albumin 4.4 g/dL (3.5-5.0) 12/06/23 G[facility]-Hgrbmvr-Jg.Jeor Equation Height: 5 ft 9 in Weight: 279 lb Resting Metabolic Rate: 2217.03 Calculated Activity Level: Mild Activity Calories Needed to Maintain Weight: 3048.42 [facility] Medical History (Updated 01/02/24 @ 11:19 by Jessica Woodard, RD, LDN) Physical exam Autism Medicare annual wellness visit, initial Mixed hyperlipidemia Seizures Developmental anomaly Constipation by delayed colonic transit GERD (gastroesophageal reflux disease) Surgical History No pertinent past surgical history Family History Father Hypertension Mother No problems noted. Paternal Grandfather Diabetes Sister Alive and well Social History Housing: Other Housing Other:: [employer] [place] Alcohol intake: never Patient Tobacco Use Status: Never used Tobacco e-Cigarette/Vaping Use: Never Used Second Hand Smoke Exposure: No service: No Current occupational status: disabled Cognitive needs: No Hearing needs: No Vision needs: No Assessment & Plan Assessment & Plan (1) Type 2 diabetes mellitus in remission: Comment: Reinforce healthy plate method, reducing portion of sugary foods and including calcium rich foods in diet Used wt : 127 kg (12/2023) Recommended kcal: 2729 rec prot intake as per 1.0 g/kg bw: 127g/d rec fluid as per 25 ml/kg bw: 3200ml/d Code(s): E11.9 - Type 2 diabetes mellitus without complications Category: Medical (2) Morbid (severe) obesity due to excess calories: Comment: Pt to resume working on reducing portion sizes Wt hx BMI 42.2 (12/2023) BMI 41.1 (05/2023) BMI 44.6 /293 lbs(09/29/2022), BMI 41.3/272 lbs(08/2021) , BMI 42.4 (reported weight on 02/2021) BMI 41.4 (09/21/20) Per staff report Pt's weight in 2019 at 316 lbs Code(s): E66.01 - Morbid (severe) obesity due to excess calories Category: Medical Plan Reinforce healthy plate method, reducing portion of sugary foods and including calcium rich foods in diet Used wt : 127 kg (12/2023) Recommended kcal: 2729 rec prot intake as per 1.0 g/kg bw: 127g/d rec fluid as per 25 ml/kg bw: 3200ml/d Patient Instructions: Include vitamin D source sof foods in the diet, fish twice a week mushrooms vitamin D fortified milk Coding Level of Care Code Nutr Indiv Subseq (71062) Diagnoses Type 2 diabetes mellitus in remission E11.9 Morbid (severe) obesity due to excess calories E66.01 Time Spent (min) 30
[2024-01-01 11:06] VITALS: BMI 42.4
[2024-01-02 11:22] VITALS: BMI 41.2
== END 2024-01-01 11:17 | disposition home or self-care (01) ==
PROVIDERS: PCP Family Medicine; Visit Provider Dietitian, Registered
DX: E11.9 Type 2 diabetes mellitus without complications (principal); E66.01 Morbid (severe) obesity due to excess calories

== ENCOUNTER → 2024-01-01 10:56 | Outpatient (BNVA) | payer MEDICARE, MEDICAID, SELFPAY | PROVIDERS: PCP Family Medicine; Visit Provider Dietitian, Registered | DX: E11.9 Type 2 diabetes mellitus without complications (principal); E66.01 Morbid (severe) obesity due to excess calories; Z68.41 Body mass index [BMI] 40.0-44.9, adult; Z71.3 Dietary counseling and surveillance | CPT/HCPCS: 97803 ==

== ENCOUNTER 2024-03-19 07:09 | Outpatient (REF) | payer MEDICARE, MEDICAID, SELFPAY ==
[2024-03-19 08:41] LABS: Vitamin D 25-OH Total 33.2 ng/mL (>30)
== END 2024-03-19 07:10 | disposition home or self-care (01) ==
LOC: HO.LAB 07:09
PROVIDERS: PCP Family Medicine; Visit Provider Family Medicine
DX: E55.9 Vitamin D deficiency, unspecified (principal)
CPT/HCPCS: 36415; 82306

== ENCOUNTER 2024-06-19 18:10 | Emergency (ER) | payer MEDICARE, MEDICAID, SELFPAY ==
[2024-06-19 18:16] VITALS: BP 144/98; PULSE 96; RESP 20; TEMP 36.1; O2SAT 97; BMI 40.3
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
[2024-06-19 18:26] VITALS: BP 144/98; PULSE 96; RESP 20; TEMP 36.1; O2SAT 97
== END 2024-06-19 18:27 | disposition home or self-care (01) ==
PROVIDERS: Emergency Provider Internal Medicine; PCP Family Medicine
DX: S41.152A Open bite of left upper arm, initial encounter (principal); X83.8XXA Intentional self-harm by other specified means, initial encounter; Y93.89 Activity, other specified; Y92.89 Other specified places as the place of occurrence of the external cause; Y99.8 Other external cause status; Z79.899 Other long term (current) drug therapy
CPT/HCPCS: 99282

== ENCOUNTER 2024-06-27 07:04 | Outpatient (REF) | payer MEDICARE, MEDICAID, SELFPAY ==
[2024-06-27 07:16] LABS: MANUAL DIFF FLAG NO
[2024-06-27 07:49] LABS: Basophils Percent Auto 0.4 % (0-2); Eosinophils Absolute Auto 0.1 X10*3/uL (0.0-0.4); Hematocrit 48.6 % (42.0-52.0); Hemoglobin 16.5 g/dl (14.0-18.0); Imm Gran Abs Auto 0.03 X10*3/uL (0.00-0.03); Imm Gran Pct Auto 0.6 % (0.0-0.4); Lymphocytes Absolute Auto 1.7 X10*3/uL (1.2-4.9); Lymphocytes Percent Auto 33.9 % (20-40); Mean Corpuscular Hemoglobin 27.5 pg (27.0-33.0); Mean Platelet Volume 10.6 fL (9.4-12.4); Monocytes Absolute Auto 0.4 X10*3/uL (0.1-1.2); Monocytes Percent Auto 8.4 % (2-11); Neutrophils Absolute Auto 2.7 x10*3/uL (2.0-8.3); Neutrophils Percent Auto 55.7 % (45-73); Platelet Count 141 X10*3/uL (160-400); Red Cell Distribution Width 13.2 % (11.0-16.0); White Blood Count 4.9 X10*3/uL (4.8-10.8)
[2024-06-27 08:44] LABS: Alanine Aminotransferase 47 U/L (0-40); Albumin Level 4.4 g/dL (3.5-5.0); Alkaline Phosphatase 100 U/L (39-117); Anion Gap 15 (12-20); Aspartate Amino Transferase 38 U/L (5-37); Bilirubin Total 0.8 mg/dL (0.0-1.0); Blood Urea Nitrogen 20 mg/dL (9-16); Calcium 9.4 mg/dL (8.4-10.2); Carbon Dioxide 25 mmol/L (22-29); Chloride 108 mmol/L (96-108); Cholesterol 143 mg/dL (<200); Estimated Glomerular Filt Rate > 60; Glucose Random 106 mg/dL (60-115); HDL Cholesterol 27 mg/dL (>40); LDL Cholesterol Calculated 58 mg/dL (<100); Potassium 3.6 mmol/L (3.3-5.1); Sodium 144 mmol/L (135-145); Total Protein 7.2 g/dL (6.5-8.0); Triglycerides 294 mg/dL (<150)
[2024-06-27 08:51] LABS: TSH reflex Free T4 2.97 uIU/mL (0.32-4.0)
[2024-06-27 10:56] LABS: HIV AB/AG Nonreactive (Nonreactive)
== END 2024-06-27 07:05 | disposition home or self-care (01) ==
LOC: HO.LAB 07:04
PROVIDERS: PCP Family Medicine; Visit Provider Family Medicine
DX: E66.01 Morbid (severe) obesity due to excess calories (principal); T88.7XXA Unspecified adverse effect of drug or medicament, initial encounter; T42.75XA Adverse effect of unspecified antiepileptic and sedative-hypnotic drugs, initial encounter; Y92.9 Unspecified place or not applicable; E11.9 Type 2 diabetes mellitus without complications; Z13.29 Encounter for screening for other suspected endocrine disorder
CPT/HCPCS: 36415; 80053; 80061; 84443; 85025; 87389

== ENCOUNTER 2024-07-02 10:53 | Outpatient (AMB) | payer MEDICARE, MEDICAID, SELFPAY ==
[2024-07-02 11:04] VITALS: BMI 38.9
--- NOTE | 2024-07-02 11:04 | A.OFFVIS_ITS ---
VS Expanded 07/02/24 11:04 Height 6 ft Weight 287 lb 0.67 oz BMI 38.9 Intake Visit Reasons: DM/ Left vm Allergies No Known Allergies Allergy (Verified 06/19/24 18:18) Nutrition Presentation Details: Pt presents for MNT for T2DM Staff reports Pt is keeping physically active, likes to walk Working on reducing on pastries Meal pattern waffles/eggs, water , milk regular mil lunch: chicken , pizza, dinner: chicken baked, ribs, rice/beans, snack/yogurt /granola /bars or cookies Pt is walking daily (once a day) BS Monitoring Most Recent Diabetes Results: Cholesterol 143 mg/dL (<200) 06/27/24 HDL Cholesterol 27 mg/dL (>40) L 06/27/24 Triglycerides 294 mg/dL (<150) H 06/27/24 Creatinine 1.22 mg/dL (0.5-1.4) 06/27/24 Blood Urea Nitrogen 20 mg/dL (9-16) H 06/27/24 Sodium 144 mmol/L (135-145) 06/27/24 Potassium 3.6 mmol/L (3.3-5.1) 06/27/24 Chloride 108 mmol/L (96-108) 06/27/24 Carbon Dioxide 25 mmol/L (22-29) 06/27/24 Calcium 9.4 mg/dL (8.4-10.2) 06/27/24 AST 38 U/L (5-37) H 06/27/24 ALT 47 U/L (0-40) H 06/27/24 Total Protein 7.2 g/dL (6.5-8.0) 06/27/24 Albumin 4.4 g/dL (3.5-5.0) 06/27/24 [facility] Medical History (Updated 07/02/24 @ 11:[address], LDN) Physical exam Autism Medicare annual wellness visit, initial Mixed hyperlipidemia Seizures Developmental anomaly Constipation by delayed colonic transit GERD (gastroesophageal reflux disease) Surgical History No pertinent past surgical history Family History Father Hypertension Mother No problems noted. Paternal Grandfather Diabetes Sister Alive and well Social History Housing: Other Housing Other:: [employer] [place] Alcohol intake: never Patient Tobacco Use Status: Never used Tobacco e-Cigarette/Vaping Use: Never Used Second Hand Smoke Exposure: No service: No Current occupational status: disabled Cognitive needs: No Hearing needs: No Vision needs: No Assessment & Plan Assessment & Plan (1) Type 2 diabetes mellitus in remission: Comment: Reinforce healthy plate method, reducing portion of sugary foods and including fiber rich foods in diet Used wt : 130 kg (07/22) Recommended kcal: 2729 rec prot intake as per 1.0 g/kg bw: 127g/d rec fluid as per 25 ml/kg bw: 3200ml/d Code(s): E11.9 - Type 2 diabetes mellitus without complications Category: Medical (2) Morbid (severe) obesity due to excess calories: Comment: Pt to resume working on reducing portion sizes Wt hx BMI 38.9 (07/22) BMI 42.2 (12/2023) BMI 41.1 (05/2023) BMI 44.6 /293 lbs(09/29/2022), BMI 41.3/272 lbs(08/2021) , BMI 42.4 (reported weight on 02/2021) BMI 41.4 (09/21/20) Per staff report Pt's weight in 2019 at 316 lbs Code(s): E66.01 - Morbid (severe) obesity due to excess calories Category: Medical Plan Reinforce healthy plate method, reducing portion of sugary foods and including calcium rich foods in diet Used wt : 127 kg (12/2023) Recommended kcal: 2729 rec prot intake as per 1.0 g/kg bw: 127g/d rec fluid as per 25 ml/kg bw: 3200ml/d Patient Instructions: Continue working on providing foods high in fiber (fruits, legumes, salads) consider adding flaxseed to the meals - try ground flaxseed 1 tsp to one of the meals and gradually increase to 3 tbsp or as tolerated (this helps with adding fiber to the diet and omega 3) Add salads to the meals Combine at least a serving of protein with a fruit (example fruit and cottage cheese or peanut butter Coding Level of Care Code Nutr Indiv Subseq (30679) Diagnoses Type 2 diabetes mellitus in remission E11.9 Morbid (severe) obesity due to excess calories E66.01 Time Spent (min) 30
== END 2024-07-02 11:27 | disposition home or self-care (01) ==
PROVIDERS: PCP Family Medicine; Visit Provider Dietitian, Registered
DX: E11.9 Type 2 diabetes mellitus without complications (principal); E66.01 Morbid (severe) obesity due to excess calories

== ENCOUNTER → 2024-07-02 10:53 | Outpatient (BNVA) | payer MEDICARE, MEDICAID, SELFPAY | PROVIDERS: PCP Family Medicine; Visit Provider Dietitian, Registered | DX: E11.9 Type 2 diabetes mellitus without complications (principal); E66.01 Morbid (severe) obesity due to excess calories; Z68.38 Body mass index [BMI] 38.0-38.9, adult | CPT/HCPCS: 97803 ==

== ENCOUNTER 2024-12-29 17:29 | Emergency (ER) | payer MEDICARE, MEDICAID, SELFPAY ==
[2024-12-29 17:42] VITALS: BP 146/88; BP 170/92; PULSE 86; PULSE 92; RESP 20; TEMP 36.7; O2SAT 96; O2SAT 97; BMI 46.1
[2024-12-29 17:52] VITALS: PULSE 91; RESP 20; TEMP 36.7; O2SAT 97
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
[2024-12-29 18:36] LABS: Glucose, Whole Blood 90 mg/dL (60-115)
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
[2024-12-29 19:06] VITALS: BP 0/0; PULSE 92; RESP 18; TEMP 36.4; O2SAT 98
== END 2024-12-29 19:11 | disposition home or self-care (01) ==
PROVIDERS: Emergency Provider Emergency Medicine; PCP Family Medicine
DX: S29.9XXA Unspecified injury of thorax, initial encounter (principal); Y04.2XXA Assault by strike against or bumped into by another person, initial encounter; Y93.9 Activity, unspecified; Y92.9 Unspecified place or not applicable; Y99.8 Other external cause status; Z79.899 Other long term (current) drug therapy
CPT/HCPCS: 82947; 99283; 99284

== ENCOUNTER 2024-12-31 11:09 | Outpatient (AMB) | payer MEDICARE, MEDICAID, SELFPAY ==
--- NOTE | 2024-12-31 11:08 | MHC.AMNUTRGE ---
VS Expanded 12/31/24 11:09 Height 6 ft Weight 289 lb 0.416 oz BMI 39.2 Intake Visit Reasons: T2DM Allergies No Known Allergies Allergy (Verified 12/29/24 17:46) Nutrition Presentation Details: Pt presents for MNT f/u for morbid obesity Pt presents with staff during this appt. Pt is non verbal Staff reports Pt has 3 meals/day,following healthy plate method and 3 snacks (fruits/crackers, cheese, sugar free pudding) Meals and snacks are served and portioned by staff and parents bring meals/snack when visiting. Staff reports following healthy plate method wt fluctuation bewteen 285-290 at home, Wt in 12/2023 at 280 lbs food frequency fruits 2-3/d dairy 3-4/d fish : 0-1/wk vegetables: 2/d Physical activity : planning to resume walking routine BS Monitoring Most Recent Diabetes Results: Cholesterol 143 mg/dL (<200) 06/27/24 HDL Cholesterol 27 mg/dL (>40) L 06/27/24 Triglycerides 294 mg/dL (<150) H 06/27/24 Creatinine 1.22 mg/dL (0.5-1.4) 06/27/24 Blood Urea Nitrogen 20 mg/dL (9-16) H 06/27/24 Sodium 144 mmol/L (135-145) 06/27/24 Potassium 3.6 mmol/L (3.3-5.1) 06/27/24 Chloride 108 mmol/L (96-108) 06/27/24 Carbon Dioxide 25 mmol/L (22-29) 06/27/24 Calcium 9.4 mg/dL (8.4-10.2) 06/27/24 AST 38 U/L (5-37) H 06/27/24 ALT 47 U/L (0-40) H 06/27/24 Total Protein 7.2 g/dL (6.5-8.0) 06/27/24 Albumin 4.4 g/dL (3.5-5.0) 06/27/24 [facility] Medical History Physical exam Autism Medicare annual wellness visit, initial Mixed hyperlipidemia Seizures Developmental anomaly Constipation by delayed colonic transit GERD (gastroesophageal reflux disease) Surgical History No pertinent past surgical history Family History Father Hypertension Mother No problems noted. Paternal Grandfather Diabetes Sister Alive and well Social History Housing: Other Housing Other:: [employer] [place] Alcohol intake: never Patient Tobacco Use Status: Never used Tobacco e-Cigarette/Vaping Use: Never Used Second Hand Smoke Exposure: No service: No Current occupational status: disabled Cognitive needs: No Hearing needs: No Vision needs: No Assessment & Plan Assessment & Plan (1) Type 2 diabetes mellitus in remission: Comment: Reinforce healthy plate method, reducing portion of sugary foods and including fiber rich foods in diet Used wt : 130 kg (07/22) Recommended kcal: 2729 rec prot intake as per 1.0 g/kg bw: 127g/d rec fluid as per 25 ml/kg bw: 3200ml/d Code(s): E11.9 - Type 2 diabetes mellitus without complications Category: Medical (2) Morbid (severe) obesity due to excess calories: Comment: Pt to resume working on reducing portion sizes Wt hx BMI 38.9 (07/22) BMI 39.2 (12/2024) 42.2 (12/2023) BMI 41.1 (05/2023) BMI 44.6 /293 lbs(09/29/2022), BMI 41.3/272 lbs(08/2021) , BMI 42.4 (reported weight on 02/2021) BMI 41.4 (09/21/20) Per staff report Pt's weight in 2019 at 316 lbs Code(s): E66.01 - Morbid (severe) obesity due to excess calories Category: Medical Plan Reinforce healthy plate method, reducing portion of sugary foods and including calcium rich foods in diet Used wt : 130 kg (12/2023) Recommended kcal: 2729 rec prot intake as per 1.0 g/kg bw: 130g/d rec fluid as per 25 ml/kg bw: 3200ml/d Patient Instructions: Reduce amount o fat added to the foods (butter, sauces, sour cream , oils Provide low sugar beverages Continue following healthy plate method Coding Level of Care Code Nutr Indiv Subseq (12734) Diagnoses Type 2 diabetes mellitus in remission E11.9 Morbid (severe) obesity due to excess calories E66.01
[2024-12-31 11:09] VITALS: BMI 39.2
--- OUTSIDE RECORDS SUMMARY | 2024-12-31 12:02 | XMS_ITS | Encounter Summary ---
Author Organization [employer] Address [address] [facility] [address] [place] [address] Care Team Providers Care Captain/Airline Pilot Name Role Phone Hyun Hearn MD Primary Care Provider [phone] Reason for Visit * Reason Onset Date Comments Med Refill 11/19/2024 Encounter Details Date Type Department Care Team ([facility] st Contact Info) Description 11/19/2024 Telephone [facility] MEDICINE [address] [place] [address] Hyun Hearn MD [address] [place] [address] Med Refill Social History Tobacco Use Types Packs/Day Years Used Date Smoking Tobacco: Never Smokeless Tobacco: Never Housing Stability Answer Date Recorded What is your housing situation today? I have jeovanylin swan 05/15/[address] you li ve. Do you have problems with any of the following? None of the above 05/15/2023 Food Insecurity Answer Date Recorded Within the past 12 months, y ou worried that your food would run out before you got money to buy more: Never True 05/15/2023 Within the past 12 months,th e food you bought just didn't last and you didn't have enough money to get more: Never True Transportation Answer Date Recorded In the past 12 months, has l ack of transportation kept you from medical appts, meetings, work or from getting things needed for daily living? No 05/15/2023 Utilities Answer Date Recorded In the past 12 months, has t he electric, gas, oil or water company threatened to shut off services in your home? No 05/15/2023 Sex and Gender Information Value Date Recorded Sex Assigned at Male 05/29/2022 10:14 AM EDT Legal Sex Male 10:14 AM EDT Gender Identity Male 05/29/2022 10:14 AM EDT Sexual Orientation Straight 05/29/2022 10 :14 AM EDT documented as of this encounter Miscellaneous Notes * Telephone Encounter - Kathy Aguayo - 11/19/2024 2:22 PM EDT TC from pt requesting medication refill. Medications needing refill : cholecalciferol (Vitamin D-3) 50 MCG (1999) capsule rosuvastatin (Crestor) 40 MG tablet To be sent to: [facility] [place] [address] documented in this encounter Plan of Treatment Upcoming Encounters Date Type Department Care Team ([facility] st Contact Info) Description 01/23/2025 10:30 AM EDT Office Visit [facility] [address] [place] [address] Hyun Hearn MD [address] [place] [address] documented as of this encounter Visit Diagnoses Not on filedocumented in this encounter Care Teams Captain/Airline Pilot Relationship Specialty Start Date End Date Hyun Hearn MD [address] [place] [id number] PCP - General Family Medicine 04/19/23 Maximiliano Noguera MD [facility] Neurology [facility] [place] [address] Consulting Physician Neurology 06/23/24 documented as of this encounter
== END 2024-12-31 12:01 | disposition home or self-care (01) ==
LOC: HO.ENCR 11:09
PROVIDERS: PCP Family Medicine; Visit Provider Dietitian, Registered
DX: E11.9 Type 2 diabetes mellitus without complications (principal); E66.01 Morbid (severe) obesity due to excess calories

== ENCOUNTER → 2024-12-31 11:09 | Outpatient (BNVA) | payer MEDICARE, MEDICAID, SELFPAY | PROVIDERS: PCP Family Medicine; Visit Provider Dietitian, Registered | DX: E11.9 Type 2 diabetes mellitus without complications (principal); E66.01 Morbid (severe) obesity due to excess calories; Z68.39 Body mass index [BMI] 39.0-39.9, adult | CPT/HCPCS: 97803 ==

== ENCOUNTER 2025-02-26 15:24 | Outpatient (AMB) | payer MEDICARE, MEDICAID, SELFPAY ==
--- OUTSIDE RECORDS SUMMARY | 2025-02-26 15:28 | XMS_ITS | Clinical Summary ---
Author Organization [address] [facility] Address [address] [place] [address] Phone Care Team Providers Care Data Governance Consultant Name Role Phone Hyun Hearn MD Primary Care Provider [phone] Social History Tobacco Use Types Packs/Day Years Used Date Smoking Tobacco: Never Smokeless Tobacco: Never Tobacco Cessation:Counseling Given: Not Answered Alcohol Use Standard Drinks/Week Comments Never 0 (1 standard drink = 0.6 oz pur e alcohol) Sex and Gender Information Value Date Recorded Sex Assigned at Not on file Legal Sex Male 11:40 AM EDT Gender Identity Not on file Sexual Orientation Not on file Obstetrics History Last Filed Vital Signs Vital Sign Reading Time Taken Comments Blood Pressure - - Pulse - - Temperature - - Respiratory Rate - - Oxygen Saturation - - Inhaled Oxygen Concentration - - Weight 136 kg (299 lb) 08/06/2024 9:08 AM EST Height 185.4 cm (6' 1 ) 08/06/2024 9:08 AM EST Body Mass Index 39.45 08/06/2024 9:08 AM EST Plan of Treatment Upcoming Encounters Date Type Department Care Team (Late st Contact Info) Description 03/18/2025 2:15 PM EDT Office Visit Orthopedic Surgery - [place] [address] [phone] Flash Dunn DPM [address] [address] Health Maintenance Due Date Last Done Comments Diabetes: Annual Foot Exam 11/15/2003 Diabetes: Annual Retina Eye Exam 11/15/2003 Hepatitis A Vaccines (1 of 2 - Risk 2-dose series) 2012 Pneumococcal Vaccine: Pediatrics (0 to 5 Years) and At-Risk Patients (6 to 49 Years) (1 of 2 - PCV) 2012 COVID-19 Vaccine (2 - 2024-25 season) 2024 12/06/2020 Hepatitis C Screening 05/09/2024 Medicare Annual Wellness Visit 05/09/2024 Social Influencers of Health Screening 05/09/2024 Depression Screening 07/30/2024 Diabetes: Annual Urine Albumin-Creatinine Ratio (uACR) 08/06/2024 Diabetes: Blood Sugar Control Test (HGBA1C) 08/06/2024 04/19/2023 Influenza Vaccine (#1) 2025 06/23/2024, 2021 Diabetes: Annual GFR (Glomerular Filtration Rate) 06/27/2025 06/27/2024 Cholesterol Screening (Lipid Panel) 06/27/2029 06/27/2024 DTaP,Tdap,and Td Vaccines (8 - Td or Tdap) 09/10/2032 09/10/2022, 09/06/2006, 04/29/1998, Additional history exists Hepatitis B Vaccines Completed 05/30/1994, 1993, 1993 HIB Vaccines Completed 02/14/1995, 04/29, 03/15/1994, Additional history exists IPV Vaccines Completed 04/29/1998, 01/27, 05/15/1994, Additional history exists MMR Vaccines Completed 04/29/1998, 12/01/1994 Meningococcal ACWY Vaccine Aged Out 09/06/2006 N o longer eligible based on patient's age to complete this topic HIV Screening Completed 06/27/2024 HPV Vaccines Aged Out No longer eligi ble based on patient's age to complete this topic Meningococcal B Vaccine Aged Out No l onger eligible based on patient's age to complete this topic RSV Immunization Patients Under 20 months Aged Out No longer eligible based on patient's age to complete this topic Varicella Vaccines Aged Out No longer eligible based on patient's age to complete this topic Insurance MEDICARE MEDICAID - [place] Care Teams Data Governance Consultant Relationship Specialty Start Date End Date Hyun Hearn MD [address] [place] [id number] PCP - General 04/23/24
--- NOTE | 2025-02-26 15:29 | AM.OFFVISMDC ---
Intake Vital Signs 02/26/25 15:30 Height 6 ft Weight 279 lb BMI 37.8 BP 136/80 Blood Pressure Location Lt brachial Position Sitting Intake Visit Reasons: AWV Rhia Required: No Accompanied by: Staff Allergies No Known Allergies Allergy (Verified 02/26/25 15:38) Medication List - Last Reconciled 02/26/25 by Mary Lou Gauthier MD acetaminophen 1,000 mg (2 x 500 mg) PO Q6H PRN 30 days aripiprazole 5 mg PO DAILY bacitracin zinc (Antibiotic (bacitracin zinc)) 1 appl topical DAILY 90 days blood sugar diagnostic (Contour Next Test Strips) Use 1 test strip three times a day carbamide peroxide 6.5% (Debrox) 5 drps otic (ears) DAILY PRN 4 days gabapentin 900 mg (3 x 300 mg) PO TID guaifenesin 400 mg PO Q4H PRN lancets (TRUEplus Lancets) 30 gauge miscellaneous TID 30 days loratadine 10 mg PO DAILY lorazepam 1 mg PO DAILY PRN 1 day magnesium hydroxide (Milk of Magnesia) 30 mL PO BEDTIME PRN omega-3 fatty acids 4,000 mg (4 x 1,000 mg) PO DAILY 30 days omeprazole 40 mg PO DAILY oxcarbazepine 300 mg PO BID 90 days quetiapine 100mg at bedtime quetiapine 200 mg PO .Am quetiapine 0 mg PO simvastatin 40 mg PO DAILY 90 days trazodone 100 mg PO BEDTIME PRN 90 days vitamin E (dl, acetate) 180 mg PO DAILY HPI HPI Comments History of Present Illness Details This is a 29-year-old male with diabetes mellitus type 2 in remission and autism that comes today accompanied by members of house staff for his Medicare annual wellness exam. Tdap vaccine up-to-date. A1c within goal being less than 7% and has been well controlled with diet. He plays with a straw in his mouth the whole time. Nonverbal and occasionally follows simple commands. Not able to do mini-mental status exam. Ppp handed to patient. [place] of care update. Has not had a seizure in over 6 months. [facility] Medical History (Updated 02/26/25 @ 15:54 by Mary Lou Gauthier MD) Morbid obesity due to excess calories Morbid (severe) obesity due to excess calories Physical exam Autism Medicare annual wellness visit, initial Mixed hyperlipidemia Seizures Developmental anomaly Constipation by delayed colonic transit GERD (gastroesophageal reflux disease) Surgical History No pertinent past surgical history Family History Father Hypertension Mother No problems noted. Paternal Grandfather Diabetes Sister Alive and well Social History Housing: Other Housing Other:: [employer] [facility] Alcohol intake: never Patient Tobacco Use Status: Never used Tobacco e-Cigarette/Vaping Use: Never Used Second Hand Smoke Exposure: No service: No Current occupational status: disabled Cognitive needs: No Hearing needs: No Vision needs: No Questionnaire Medicare Wellness Checkup What gender do you identify with?: male During the past 4 weeks, how much have you been bothered by emotional problems such as feeling anxious, depressed, irritable, sad or downhearted, and blue?: slightly During the past 4 weeks, has your physical & emotional health limited your social activities with family, friends, neighbors, or groups?: not at all During the past 4 weeks, was someone available to help you if you needed & wanted help?: yes, as much as I wanted During the past 4 weeks, what was the hardest physical activity you could do for at least 2 minutes?: light Can you get to places out of walking distance without help? (For eg., can you travel alone on buses, taxis or drive your car?): Yes Can you go shopping for groceries or clothes without someone's help?: No Can you prepare your own meals?: No Can you do your housework without help?: No Because of any health problems, do you need the help of another person with your personal care needs such as eating, bathing, dressing or getting around the house?: Yes Can you handle your own money without help?: No During the past 4 weeks, how would you rate your health in general?: good During the past 4 weeks how have things been going for you?: good & bad parts about equal Are you having difficulties driving your car?: not applicable, I don't use a car Do you always fasten your seat belt when you are in a car?: yes, usually During past 4 weeks, have you been bothered by the following: never: Sexual problems?, seldom: Falling or dizzy when standing up, Trouble eating well? and Teeth or denture problems?, sometimes: Tiredness or fatigue? and always: Problems using the telephone? Have you fallen 2 or more times in the past year?: No Are you afraid of falling?: Yes Are you a smoker?: no During the past 4 weeks, how many drinks of wine, beer, or other alcoholic beverages did you have?: no alcohol at all Do you exercise for about 20 minutes 3 or more times a week?: yes, some of the time Have you been given information to help with the following?: yes: Hazards in your house that might hurt you? and yes: Keeping track of your medications? How often do you have trouble taking medicines the way you have been told to take them?: I always take medicine as prescribed How confident are you that you can control & manage most of your health problems?: not very confident What is your race?: or origin or descent Activity of Daily Living Bathing - sponge bath, tub bath or shower: receives help in bathing more than one body part (or not bathed) Dressing - getting clothes from closets & drawers, including inner/outer garments & fasteners.: receives help getting clothes or getting dressed, or stays undressed Toileting - going to the 'toilet room' for urine/bowel elimination & cleaning self/arranging clothes: receives help going to toilet room, cleaning self or arranging clothes Transfer: moves in & out of bed and chair without help (may use support object) Continence: supervision helps urination/bowel control; catheter use; incontinent Feeding: feeds self except getting help in cutting meat/buttering bread Total Score: 3 Information obtained from: informant Using telephone: dependent Traveling: dependent Shopping: dependent Preparing meals: dependent Housework: dependent Taking medicine: dependent Managing money: dependent PHQ-9 Over the last 2 weeks, how often have you been bothered by any of the following problems? 1. Little interest or pleasure in doing things: not at all 2. Feeling down, depressed, or hopeless: not at all 3. Trouble falling or staying asleep, or sleeping too much: several days 4. Feeling tired or having little energy: not at all 5. Poor appetite or overeating: not at all 6. Feeling bad about yourself - or that you are a failure or have let yourself or your family down: not at all 7. Trouble concentrating on things, such as reading the newspaper or watching television: not at all 8. Moving or speaking so slowly that other people could have noticed. Or the opposite - being so fidgety or restless that you have been moving around a lot more than usual: not at all 9. Thoughts that you would be better off or of hurting yourself in some way: not at all Total score: 1 Depression Screening Interpretation: Negative Depression Screening Done: Yes 57238 - PHQ-9 Billing: Yes Source: Developed by Drs. Ravinder Navarro, Gunjan Goodman, John Becerra and colleagues, with an educational graham from [employer]. AUDIT C Alcohol Use Questionnaire (AUDIT-C) 1. How often do you have a drink containing alcohol?: Never Total Score: 0 STEPHANIE-7 AMB Questionnaire STEPHANIE-7 Date STEPHANIE - 7 assessed: 02/26/25 Feeling nervous, anxious, or on edge: 2 = More than half the days Not being able to stop or control worryin = Not at all Worrying too much about different things: 0 = Not at all Trouble relaxin = Not at all Being so restless that it is hard to sit still: 0 = Not at all Becoming easily annoyed or irritable: 0 = Not at all Feeling afraid as if something awful might happen: 0 = Not at all Total STEPHANIE-7 score (0-4 normal; 5-9 mild; 10-14 moderate; 15-21 severe): 2 Source: Developed by Drs. Ravinder Navarro, Gunjan Goodman, John Becerra and colleagues, with an educational graham from [employer]. Thrive Questionnaire Date Thrive assessed: 09/28/22 I am a: Parent/Caregiver What is your living situation today?: I choose not to answer this question Within the past 12 months, did the food you bought not last and you didn't have the money to get more?: I choose not to answer this question Within the past 12 months, did you worry whether your food would run out before you got money to buy more?: I choose not to answer this question Do you have trouble paying for medicines?: I choose not to answer this question Do you have trouble getting transportation to medical appointments?: I choose not to answer this question Do you have trouble paying your heating and electricity bill?: I choose not to answer this question Do you have trouble taking care of your child, family member or friend?: I choose not to answer this question Do you have trouble with day-to-day activities such as bathing, preparing meals, shopping, managing finances, etc.?: I choose not to answer this question Are you currently unemployed and looking for a job?: I choose not to answer this question Are you interested in more education?: I choose not to answer this question Please select the resources that you would like help with: None Currently or been in a relationship where the following occur: I choose not to answer THRIVE Score: 0 Review of Systems Const All systems reviewed & are unremarkable except as noted in HPI and below Card Denies chest pain at rest, Denies chest pain with activity, Denies edema, Denies irregular heart rhythm, Denies claudication, Denies dyspnea, Denies dyspnea on exertion, Denies orthopnea, Denies paroxysmal nocturnal dyspnea and Denies slow heart rate Resp Denies cough, Denies dyspnea and Denies dyspnea on exertion Physical Exam Vital Signs: Last Vital Signs BP 136/80 02/26/25 15:30 BMI result Body Mass Index 37.8 Resp Effort & Inspection: normal respiratory effort Auscultation: clear to auscultation bilaterally Cardio Jugular venous distension: no JVD Rate: regular rate Rhythm: regular rhythm Heart sounds: S1 normal heart sound present and S2 normal heart sound present Extrem General: Yes full ROM Results AMB Hemoglobin A1c AMB Hemoglobin A1c 5.2 % Last Edit by KAIA Villaseñor on 02/26/25 15:45 Results Reviewed Results Reviewed: Laboratory Last Values Hgb A1c (Clinic) 5.2 % (4.0-6.0) 02/26/25 15:27 Assessment & Plan Assessment & Plan (1) Medicare annual wellness visit, subsequent: Code(s): Z00.00 - Encounter for general adult medical examination without abnormal findings (2) Seizures: Code(s): R56.9 - Unspecified convulsions (3) Autism: Code(s): F84.0 - Autistic disorder (4) Type 2 diabetes mellitus in remission: Comment: Reinforce healthy plate method, reducing portion of sugary foods and including fiber rich foods in diet Used wt : 130 kg (07/22) Recommended kcal: 2729 rec prot intake as per 1.0 g/kg bw: 127g/d rec fluid as per 25 ml/kg bw: 3200ml/d Code(s): E11.9 - Type 2 diabetes mellitus without complications Plan Continue current meds. Repeat in a year. Orders: Orders AMB Hemoglobin A1c 02/26/25 E11.9 - Type 2 diabetes mellitus without complications Lipid Panel 4 Months E78.5 - Hyperlipidemia, unspecified Comprehensive [place]. Panel Fast 4 Months Z00.00 - Encounter for general adult medical examination without abnormal findings Quality Reporting (2019) Depression/Bipolar (159/160/161/177) PHQ-9: Total score: 1 Coding Level of Care Code Medicare Subsequent (G0439) Diagnoses Medicare annual wellness visit, subsequent Z00.00 Seizures R56.9 Autism F84.0 Type 2 diabetes mellitus in remission E11.9 Additional Codes PHQ-9 - 13450 - PHQ-9 Billing: Yes ([id number]) Time Spent (min) 30
[2025-02-26 15:30] VITALS: BP 136/80; BMI 37.8
== END 2025-02-26 15:51 | disposition home or self-care (01) ==
LOC: HO.HMCH 15:25
PROVIDERS: PCP Internal Medicine; Visit Provider Internal Medicine
DX: E11.9 Type 2 diabetes mellitus without complications (principal)

== ENCOUNTER → 2025-02-26 15:24 | Outpatient (BNVA) | payer MEDICARE, MEDICAID, SELFPAY | PROVIDERS: PCP Internal Medicine; Visit Provider Internal Medicine | DX: Z00.00 Encounter for general adult medical examination without abnormal findings (principal); R56.9 Unspecified convulsions; F84.0 Autistic disorder; E11.9 Type 2 diabetes mellitus without complications | CPT/HCPCS: 83036; 96127 ==

== ENCOUNTER 2025-03-02 13:57 | Outpatient (REF) | payer MEDICARE, MEDICAID, SELFPAY ==
--- OUTSIDE RECORDS SUMMARY | 2025-03-02 14:08 | XMS_ITS | Clinical Summary ---
Author Organization [address] [facility] Address [address] [place] [address] Phone Care Team Providers Care Labor Arbitrator Hearing Office Name Role Phone Hyun Hearn MD Primary Care Provider [phone] Social History Tobacco Use Types Packs/Day Years [...] PM EDT Office Visit Orthopedic Surgery - [place] [address] [phone] Flash Dunn DPM [address] [address] Health Maintenance Due Date Last Done Comments [...] Insurance MEDICARE MEDICAID - [place] Care Teams Labor Arbitrator Hearing Office Relationship Specialty Start Date End Date Hyun Hearn MD [address] [place] [address] PCP - General 04/23/24
--- OUTSIDE RECORDS SUMMARY | 2025-03-02 14:08 | XMS_ITS | Encounter Summary ---
Author Organization [employer] Address [address] [facility] [address] [place] [address] Care Team Providers Care Hedis Abstractor Name Role Phone Hyun Hearn MD Primary Care Provider [phone] Reason for Visit * Reason Onset Date Comments Med Refill 11/19/2024 Encounter Details Date Type Department Care Team ([facility] st Contact Info) Description 11/19/2024 Telephone [facility] MED[facility]INE [address] [place] [address] Hyun Heran MD [address] [place] [address] Med Refill Social History Tobacco Use Types [...] 40 MG tablet To be sent to: [facility] - [address] documented in this encounter Plan of Treatment Not on file documented as of this encounter Visit Diagnoses Not on filedocumented in this encounter Care Teams Hedis Abstractor Relationship Specialty Start Date End Date Hyun Heran MD [address] [place] [id number] PCP - General Family Medicine 04/19/23 Maximiliano Noguera MD [facility] Neurology [address] [place] [address] Consulting Physician Neurology 06/23/24 documented as of this encounter
[2025-03-02 18:15] LABS: Resp Syncy Virus RNA Qual PCR NEGATIVE (Negative); SARS COV2 PCR INHOUSE NEGATIVE (Negative)
== END 2025-03-02 13:58 | disposition home or self-care (01) ==
LOC: HO.CHCLNP 13:57
DX: R05.1 Acute cough (principal)
CPT/HCPCS: 87637

== ENCOUNTER 2025-03-03 11:33 | Outpatient (REF) | payer MEDICARE, MEDICAID, SELFPAY ==
--- OUTSIDE RECORDS SUMMARY | 2025-03-03 12:25 | XMS_ITS | Encounter Summary ---
Author Organization [employer] Address [address] [facility] [address] [place] [address] Care Team Providers Care Electron Beam Operator Name Role Phone Hyun Hearn MD Primary Care Provider [phone] Reason for Visit * Reason Onset Date Comments Med Refill 11/19/2024 Encounter Details Date Type Department Care Team ([facility] st Contact Info) Description 11/19/2024 Telephone [facility] MEDICINE [address] [place] [address] Hyun Hearn MD [address] [place] [address] Med Refill Social History Tobacco Use Types [...] 40 MG tablet To be sent to: [facility] - [address] documented in this encounter Plan of Treatment Not on file documented as of this encounter Visit Diagnoses Not on filedocumented in this encounter Care Teams Electron Beam Operator Relationship Specialty Start Date End Date Hyun Hearn MD [address] [place] [phone] PCP - General Family Medicine 04/19/23 Maximiliano Noguera MD [facility] Neurology [address] [place] [phone] Consulting Physician Neurology 06/23/24 documented as of this encounter
--- OUTSIDE RECORDS SUMMARY | 2025-03-03 12:25 | XMS_ITS | Clinical Summary ---
Author Organization [address] [facility] Address [address] [place] [address] Phone Care Team Providers Care Lacquer Sizer Name Role Phone Hyun Hearn MD Primary Care Provider [phone] Social History Tobacco Use Types Packs/Day Years [...] PM EDT Office Visit Orthopedic Surgery - [place] [address] [phone] Flash Dunn DPM [address] [address] Health Maintenance Due Date Last Done Comments [...] Insurance MEDICARE MEDICAID - [place] Care Teams Lacquer Sizer Relationship Specialty Start Date End Date Hyun Hearn MD [address] [place] [address] PCP - General 04/23/24
[2025-03-03 14:19] LABS: MANUAL DIFF FLAG NO
[2025-03-03 14:26] LABS: Hematocrit 47.2 % (42.0-52.0); Hemoglobin 16.3 g/dl (14.0-18.0); Imm Gran Abs Auto 0.02 X10*3/uL (0.00-0.03); Imm Gran Pct Auto 0.5 % (0.0-0.4); Lymphocytes Absolute Auto 1.4 X10*3/uL (1.2-4.9); Mean Corpuscular HGB Conc 34.5 g/dl (31.0-36.0); Mean Corpuscular Hemoglobin 27.7 pg (27.0-33.0); Mean Corpuscular Volume 80.3 fL (80.0-98.0); NRBC Abs Auto 0.000 X10*3/uL (0.0-0.012); NRBC Pct Auto 0.0 /100WBC (0.0-0.2); Platelet Count 130 X10*3/uL (160-400); Red Blood Count 5.88 X10*6/uL (4.60-5.80); White Blood Count 4.1 X10*3/uL (4.8-10.8)
[2025-03-03 14:57] LABS: Anion Gap 13 (12-20); Blood Urea Nitrogen 20 mg/dL (9-16); Calcium 9.5 mg/dL (8.4-10.2); Carbon Dioxide 24 mmol/L (22-29); Chloride 108 mmol/L (96-108); Estimated Glomerular Filt Rate > 60; Potassium 3.7 mmol/L (3.3-5.1); Sodium 141 mmol/L (135-145)
[2025-03-03 15:04] LABS: Hemoglobin A1C 145.2437 umol/L; Total Hemoglobin (HGBA1C) 4407.7208 umol/L
== END 2025-03-03 11:34 | disposition home or self-care (01) ==
LOC: HO.CHCLDS 11:33
DX: E11.9 Type 2 diabetes mellitus without complications (principal); R05.1 Acute cough; E66.813 Obesity, class 3; Z68.41 Body mass index [BMI] 40.0-44.9, adult
CPT/HCPCS: 36415; 80048; 83036; 84443; 85025